=== PATIENT | male | born 1935 | race Caucasian/White ===

== ENCOUNTER 2023-03-24 17:47 | Emergency (ER) | payer BC ==
[2023-03-24 20:56] LABS: BASOPHILS ABSOLUTE AUTO 0.04 K/uL (0.00-0.10); BASOPHILS PERCENT AUTO 0.8 % (0.1-1.3); EOSINOPHILS ABSOLUTE AUTO 0.27 K/uL (0.00-0.40); EOSINOPHILS PERCENT AUTO 5.3 % (0.0-5.4); HEMATOCRIT 35.4 % (38.4-49.7); HEMOGLOBIN 11.9 g/dL (12.9-16.9); LYMPHOCYTES ABSOLUTE AUTO 1.58 K/uL (0.8-3.3); LYMPHOCYTES PERCENT AUTO 30.8 % (11.4-47.7); MEAN CORPUSCULAR HEMOGLOBIN 30.4 pg (31.6-35.5); MEAN CORPUSCULAR HGB CONC 33.6 g/dL (31.6-35.5); MEAN CORPUSCULAR VOLUME 90.3 fL (81.4-99.0); MONOCYTES ABSOLUTE AUTO 0.52 K/uL (0.20-0.90); MONOCYTES PERCENT AUTO 10.1 % (3.3-12.6); NEUTROPHILS ABSOLUTE AUTO 2.72 K/uL (1.0-7.6); PLATELET COUNT,PLT 209 K/uL (130-375); RED BLOOD CELL COUNT 3.92 M/uL (4.14-5.76); WHITE BLOOD CELL COUNT,WBC 5.1 K/uL (3.2-11.0)
[2023-03-24 21:10] LABS: CALCIUM 8.7 mg/dL (8.5-10.1); CREATININE 1.3 mg/dL (0.8-1.3); EST CRCL DRUG DOSING (CG) 34.76 mL/min; POTASSIUM,K 4.2 mmol/L (3.6-5.2)
[2023-03-24 21:11] LABS: ANION GAP 13.2 mmol/L (5.0-14.0)
[2023-03-24] MEDS ORDERED: hydrALAZINE 20 MG/ML SDV IVPUSH ONE (21:19)
[2023-03-24] MEDS ORDERED: Bacitracin Oint 1 GM U/D Packet TOP ONE (22:33)
== END 2023-03-24 22:30 | disposition home or self-care (01) ==
LOC: JP.ED 17:47
DX: S00.01XA Abrasion of scalp, initial encounter (principal); Z79.82 Long term (current) use of aspirin; Z91.013 Allergy to seafood; Z88.8 Allergy status to other drugs, medicaments and biological substances; W01.198A Fall on same level from slipping, tripping and stumbling with subsequent striking against other object, initial encounter; Y92.009 Unspecified place in unspecified non-institutional (private) residence as the place of occurrence of the external cause
CPT/HCPCS: 36415; 70450; 72125; 76377; 80048; 85025; 99284